=== PATIENT | male | born 1995 | race Hispanic/Latino ===

== ENCOUNTER 2024-05-08 15:29 | Outpatient (CLI) | payer BC | END 2024-05-08 15:30 | disposition home or self-care (01) | LOC: BICRAD 15:29 | PROVIDERS: ATTEND Family Medicine | DX: M54.2 Cervicalgia (principal); M54.50 Low back pain, unspecified; M47.816 Spondylosis without myelopathy or radiculopathy, lumbar region | CPT/HCPCS: 72050; 72110 ==